=== PATIENT | male | born 1965 | race Caucasian/White ===

== ENCOUNTER → 2019-05-05 | Day surgery (SDC) | payer OTHER ==
[~2019-05-05] MED LIST: AMLODIPINE BESY10 MG PO; FENTANYL CITRATE/PF 100MCG/2 ML INJ ONE; HYOSCYAMINE SULFATE 0.5 MG/ML INJ ONE; KEFLEX500 MG PO; KENALOG TOP; LIDOCAINE HCL 2% LOCAL INJ 5 ML SDV VIAL INJ ONE; LOSARTAN-HCTZ1 EAC1 PO; MIDAZOLAM HCL 2 MG/2 ML VIAL ONE; NORCO 7.5-3251 EACH PO; PHENYLEPHRINE HCL 1% 10 MG/ML VIAL ONE; PROPOFOL IV EMULSION 10 MG/ML 50 ML VIAL ONE; SURFAK240 MG PO; ZETIA10 MG PO
--- NOTE | 2019-05-05 07:10 | NUR ---
SPIRITUAL CARE - Pre-Surgery Assessment: Pt in bed. Pt's at bedside. Pt reported supportive attention from family and friends. Intervention: I provided pastoral presence, hospitality,and sympathetic listening. I acquainted pt with availability of allergist/md while hospitalized. Outcome: Pt expressed appreciation for visit. No need for follow up indicated at this time. BERNARDO [facility] Spiritual Care Department O: [phone] Pager: [phone] ([phone] number calling from)
[2019-05-05 10:20] VITALS: BP 112/73
--- NOTE | 2019-05-05 17:01 | Operative Report ---
DATE OF PROCEDURE: 05/05/2019 SURGEON: Tushar Pritchard MD PROCEDURE: Colonoscopy and polypectomy. INDICATIONS FOR COLONOSCOPY: Colorectal cancer screening. MEDICATIONS: The patient was done under MAC, please see anesthesiologist's note. PROCEDURE IN DETAIL: With the patient in left lateral decubitus position, the flexible fiberoptic Olympus colonoscope was inserted into the rectum with ease and advanced all the way to the cecum. The scope was then withdrawn slowly. Mucosa overlying the cecum and ascending colon appeared to be within normal limits. One polyp was snared from the transverse colon. The descending colon appeared to be within normal limits. Two polyps were snared, one polyp was hot biopsied from the sigmoid colon. Two polyps were snared, one polyp was hot biopsied from the rectum. The scope was then retroflexed into the distal rectum and small internal hemorrhoids were noted none of which was actively bleeding. I repeat moderate-sized internal hemorrhoids were noted none of which was actively bleeding. The scope was then straightened out. It was subsequently withdrawn. The patient tolerated procedure well. External hemorrhoids were also noted. IMPRESSION: 1. Transverse colon polyp snared. 2. Sigmoid colon polyps x3, two snared, one hot biopsied. 3. Rectum, two polyps were snared and one polyp was hot biopsied. 4. Internal hemorrhoids, none actively bleeding. 5. External hemorrhoids. PLAN: Follow up histology. Initiate high-fiber, low-fat diet. Initiate high-fiber supplement. The patient might benefit from a followup colonoscopy in 3 years. Tushar Pritchard MD [facility] [place]/ELENA /[id number] cc: MD Daryn Crockett MD
== END | disposition home or self-care (01) ==
LOC: OR 05:49
PROVIDERS: ATTEND Internal Medicine Gastroenterology
DX: Z12.11 Encounter for screening for malignant neoplasm of colon (principal); D12.7 Benign neoplasm of rectosigmoid junction; D12.3 Benign neoplasm of transverse colon; K64.4 Residual hemorrhoidal skin tags; Z68.30 Body mass index [BMI] 30.0-30.9, adult; R03.0 Elevated blood-pressure reading, without diagnosis of hypertension; K62.5 Hemorrhage of anus and rectum; K64.8 Other hemorrhoids
CPT/HCPCS: 36415; 45378; 45384; 45385; 82948; 93005; J1980; J2001; J2250; J2370

== ENCOUNTER 2019-05-14 06:48 | Observation (INO) | payer OTHER ==
[2019-05-12 09:10] LABS: BASOPHILS % 0.6 % (0.0-1.0); EOSINOPHILS # (AUTO) 0.2 (0.0-0.4); EOSINOPHILS % 3.3 % (0.0-6.0); HEMATOCRIT 37.9 % (38.2-49.6); HEMOGLOBIN 13.9 g/dL (14.0-18.0); LYMPHOCYTES # (AUTO) 1.9 (1.0-3.2); LYMPHOCYTES % 28.5 % (18.0-39.1); MEAN CORPUSCULAR HEMOGLOBIN 30.8 pg (28-32); MEAN CORPUSCULAR HGB CONC 36.7 g/dL (31-35); MEAN CORPUSCULAR VOLUME 83.8 fL (81-99); MONOCYTES # (AUTO) 0.6 (0.2-0.8); MONOCYTES % 9.2 % (4.4-11.3); NEUTROPHILS # (AUTO) 3.9 (2.1-6.9); NEUTROPHILS % 58.1 % (38.7-80.0); PLATELET COUNT 231 x10e3/uL (140-360); RED BLOOD COUNT 4.52 x10e6/uL (4.3-5.7); RED CELL DISTRIBUTION WIDTH 13.4 % (11.7-14.4)
[2019-05-12 09:41] LABS: CALCIUM 10.1 mg/dL (8.4-10.2); CREATININE, SERUM 1.52 mg/dL (0.72-1.25)
[~2019-05-14] VITALS: Ht 167.6 cm; Wt 78.0 kg
[~2019-05-14 06:48] MED LIST changes: -FENTANYL CITRATE/PF 100MCG/2 ML INJ ONE; -HYOSCYAMINE SULFATE 0.5 MG/ML INJ ONE; -KEFLEX500 MG PO; -KENALOG TOP; -LIDOCAINE HCL 2% LOCAL INJ 5 ML SDV VIAL INJ ONE; -MIDAZOLAM HCL 2 MG/2 ML VIAL ONE; -NORCO 7.5-3251 EACH PO; -PHENYLEPHRINE HCL 1% 10 MG/ML VIAL ONE; -PROPOFOL IV EMULSION 10 MG/ML 50 ML VIAL ONE; -SURFAK240 MG PO
[2019-05-14 08:09] LABS: ANION GAP 19.2 mmol/L (8-16); CALCIUM 10.1 mg/dL (8.4-10.2); CREATININE, SERUM 1.69 mg/dL (0.72-1.25); POTASSIUM 3.2 mmol/L (3.5-5.1)
[2019-05-14] MEDS ORDERED: LIDOCAINE HCL 1% LOCAL INJ 20 ML VIAL ONE (08:52)
[2019-05-14] MEDS ORDERED: LIDOCAINE HCL 2% 30 ML TUBE ONE ×2 (08:52→08:53)
[2019-05-14] MEDS ORDERED: BUPIVACAINE 0.25%/EPI 30ML SDV INJ ONE (08:52)
[2019-05-14] MEDS: SODIUM CHLORIDE 0.9% 1000ML 1,000 ML IV SCH ×2 (11:23→13:41)
[2019-05-14] MEDS ORDERED: HYDROMORPHONE 1MG/1ML INJ IV PRN (11:30)
[2019-05-14] MEDS ORDERED: ACETAMINOPHEN 1000 MG/100 ML IV PRN (11:30)
[2019-05-14] MEDS ORDERED: ONDANSETRON HCL INJ 2MG/ML 2ML 2 MG/ML VIAL IV PRN (11:30)
[2019-05-14] MEDS ORDERED: MEPERIDINE HCL INJ 25 MG/ML VIAL ONE (11:38)
[2019-05-14] MEDS ORDERED: HYDROMORPHONE 2MG/ML 2 MG/ML ML ONE (11:51)
--- NOTE | 2019-05-14 11:57 | Operative Report ---
DATE OF PROCEDURE: 05/14/2019 SURGEON: Javon Ramon MD PREOPERATIVE DIAGNOSIS: Thrombosed prolapsing internal and external hemorrhoids. POSTOPERATIVE DIAGNOSIS: Thrombosed prolapsing internal and external hemorrhoids. OPERATION PERFORMED: Internal and external hemorrhoidectomy. TOPPIECE CUTTER: BERNIE Saucedo. ANESTHESIA: General. COMPLICATIONS: None. ESTIMATED BLOOD LOSS: Minimal. PROCEDURE IN DETAIL: With the patient lying in bed in the lithotomy position, under good general anesthesia, the perineum was prepped with Betadine solution and draped in the usual manner. A complete anorectal block was then performed with 0.25% Marcaine and 1% lidocaine with epinephrine mixed in equal parts. Examination at this point revealed there was a large prolapsing thrombosed hemorrhoidal group extending from about the 2 o'clock to about the 6 o'clock position. There was a small hemorrhoidal group at 8 o'clock and another small hemorrhoidal group at the 12 o'clock position. The hemorrhoid group at the 4 o'clock position was then ligated with a 0 chromic suture. The external component was then slowly and carefully resected in a submucous fashion and was totally completely removed. The base of the hemorrhoid was then further oversewn with the 0 chromic suture and the skin and mucosa were then reapproximated with interrupted sutures of 3-0 chromic. After this was done, the hemorrhoids at the 12 o'clock and 8 o'clock position were ligated with 0 chromic suture. Hemostasis was ascertained. A Gelfoam pack impregnated with Xylocaine was placed. A dressing was applied. The sponge, lap, and needle count was correct. The patient tolerated the procedure well and returned to the recovery room in stable condition. Javon Ramon MD [facility]/MODL /[id number]
--- NOTE | 2019-05-14 12:23 | NUR ---
Patient arrived from PACU, fully awake, alert and able to ambulate to bathroom to void with standby assistance. Rectal dressing intact. Vital signs stable and pt orient to new room. Bed in lowest position, locked and call holloway within.
[2019-05-14 12:30] VITALS: BP 115/69
[2019-05-14 12:35] VITALS: BP 115/69
[2019-05-14] MEDS ORDERED: HYDROMORPHONE 2MG/ML 2 MG/ML ML IV PRN (13:00)
[2019-05-14] MEDS: CEFOXITIN 1GM/ D5W 50ML 50 ML IV SCH ×2 (13:33→17:50)
[2019-05-14] MEDS: HYDROCODONE/APAP 7.5MG-325MG 1 EA TAB PO PRN ×3 (13:41→23:13)
[2019-05-14 16:44] VITALS: BP 100/58
--- NOTE | 2019-05-14 17:00 | NUR ---
Patient ambulating to bathroom and back without any complaints voiced.
--- NOTE | 2019-05-14 18:08 | NUR ---
Dr. Ramon making rounds. Call holloway within reach.
[2019-05-14] MEDS ORDERED: DEXAMETHASONE SOD PHOS INJ 4 MG/ML VIAL ONE (18:39)
[2019-05-14] MEDS ORDERED: PROPOFOL IV EMULSION 10 MG/ML 20 ML VIAL ONE (18:39)
[2019-05-14] MEDS ORDERED: SEVOFLURANE INHAL SOLN 250 ML PEN BTL ONE (18:39)
[2019-05-14] MEDS ORDERED: LIDOCAINE HCL 2% LOCAL INJ 5 ML SDV VIAL INJ ONE (18:39)
[2019-05-14] MEDS ORDERED: ONDANSETRON HCL INJ 2MG/ML 2ML 2 MG/ML VIAL ONE (18:39)
[2019-05-14] MEDS ORDERED: ACETAMINOPHEN 1000 MG/100 ML IV ONE (18:39)
[2019-05-14] MEDS ORDERED: FENTANYL CITRATE/PF 100MCG/2 ML INJ ONE (18:43)
[2019-05-14] MEDS ORDERED: MIDAZOLAM HCL 2 MG/2 ML VIAL ONE (18:43)
[2019-05-14 19:27] VITALS: BP 116/67
[2019-05-14 19:29] VITALS: BP 111/67
[2019-05-15] VITALS: BP 100/56
[2019-05-15 04:00] VITALS: BP 112/61
[2019-05-15] MEDS: HYDROCODONE/APAP 7.5MG-325MG 1 EA TAB PO PRN ×3 (04:05→08:02)
[2019-05-15] MEDS: SODIUM CHLORIDE 0.9% 1000ML 1,000 ML IV SCH (04:45)
[2019-05-15 05:31] LABS: BASOPHILS % 0.1 % (0.0-1.0); HEMATOCRIT 36.8 % (38.2-49.6); LYMPHOCYTES # (AUTO) 1.2 (1.0-3.2); LYMPHOCYTES % 12.3 % (18.0-39.1); MEAN CORPUSCULAR HEMOGLOBIN 30.2 pg (28-32); MEAN CORPUSCULAR HGB CONC 35.3 g/dL (31-35); MEAN CORPUSCULAR VOLUME 85.4 fL (81-99); MONOCYTES # (AUTO) 0.5 (0.2-0.8); MONOCYTES % 5.1 % (4.4-11.3); NEUTROPHILS # (AUTO) 8.1 (2.1-6.9); NEUTROPHILS % 82.1 % (38.7-80.0); PLATELET COUNT 234 x10e3/uL (140-360); RED BLOOD COUNT 4.31 x10e6/uL (4.3-5.7); RED CELL DISTRIBUTION WIDTH 13.4 % (11.7-14.4)
[2019-05-15 05:40] LABS: ANION GAP 17.6 mmol/L (8-16); CALCIUM 9.3 mg/dL (8.4-10.2); CREATININE, SERUM 1.35 mg/dL (0.72-1.25); POTASSIUM 3.6 mmol/L (3.5-5.1)
--- NOTE | 2019-05-15 07:05 | NUR ---
Patient up ambulating to bathroom without any complaints voiced at this time. Dressing/ rectal packing in place. Patient instructed to call for assistance as needed and verbalized understanding. Call holloway within reach.
[2019-05-15] MEDS ORDERED: NON-FORMULARY MEDICATION (Losartan/Hydrochlorothiazide (Losartan-Hctz 100-25 Mg Tab) 1 TAB PO SCH (09:00)
[2019-05-15] MEDS ORDERED: HYDROCHLOROTHIAZIDE 25 MG TAB PO SCH (09:00)
[2019-05-15] MEDS ORDERED: LOSARTAN POTASSIUM 100 MG TAB PO SCH (09:00)
[2019-05-15] MEDS ORDERED: EZETIMIBE 10 MG TAB PO SCH (09:00)
[2019-05-15] MEDS ORDERED: AMLODIPINE BESYLATE 10 MG TAB PO SCH (09:00)
[2019-05-15 09:10] VITALS: BP 100/65
[2019-05-15 09:16] VITALS: BP 100/65
[2019-05-15] MEDS ORDERED: ONDANSETRON HCL 4 MG ORAL DISINTEGRATING TAB PO PRN (10:30)
[2019-05-15 11:47] VITALS: BP 105/66
[2019-05-15] MEDS ORDERED: SURFAK240 MG PO (14:42)
[2019-05-15] MEDS ORDERED: KEFLEX500 MG PO (14:43)
[2019-05-15] MEDS ORDERED: KENALOG TOP (14:44)
[2019-05-15] MEDS ORDERED: NORCO 7.5-3251 EACH PO (14:45)
--- NOTE | 2019-05-15 15:00 | NUR ---
Dr. Ramon making rounds. Patient will be discharged home today. Written instructions given patient verbalized understanding. Awaiting ride
--- NOTE | 2019-05-15 15:18 | NUR ---
Patient wheeled to private vehicle with all belongings.
== END 2019-05-15 15:18 | disposition home or self-care (01) ==
LOC: OR 06:48 → PACU V 11:25 → IMCU 12:47
PROVIDERS: ADMIT Surgery; ATTEND Surgery
DX: K64.8 Other hemorrhoids (principal); K64.5 Perianal venous thrombosis; Z01.810 Encounter for preprocedural cardiovascular examination; Z01.812 Encounter for preprocedural laboratory examination; E11.9 Type 2 diabetes mellitus without complications; I10 Essential (primary) hypertension
CPT/HCPCS: 36415 ×3; 46260; 80048 ×3; 82948 ×2; 85025 ×2; 88304; G0378 ×2; J0131; J1100; J1170; J2001 ×2; J2175; J2250; J2405; J2704; J7030 ×2

== ENCOUNTER → 2019-10-31 | Day surgery (SDC) | payer OTHER ==
[2019-10-21 09:37] LABS: BASOPHILS # (AUTO) 0.1 (0.0-0.1); EOSINOPHILS # (AUTO) 0.3 (0.0-0.4); EOSINOPHILS % 4.5 % (0.0-6.0); HEMATOCRIT 45.5 % (38.2-49.6); HEMOGLOBIN 15.4 g/dL (14.0-18.0); LYMPHOCYTES # (AUTO) 1.2 (1.0-3.2); LYMPHOCYTES % 16.3 % (18.0-39.1); MEAN CORPUSCULAR HEMOGLOBIN 31.3 pg (28-32); MEAN CORPUSCULAR HGB CONC 33.8 g/dL (31-35); MEAN CORPUSCULAR VOLUME 92.5 fL (81-99); MONOCYTES # (AUTO) 0.5 (0.2-0.8); MONOCYTES % 6.6 % (4.4-11.3); NEUTROPHILS # (AUTO) 5.2 (2.1-6.9); NEUTROPHILS % 71.2 % (38.7-80.0); PLATELET COUNT 225 x10e3/uL (140-360); RED BLOOD COUNT 4.92 x10e6/uL (4.3-5.7); RED CELL DISTRIBUTION WIDTH 12.6 % (11.7-14.4)
[2019-10-21 10:09] LABS: BLOOD UREA NITROGEN 22 mg/dL (7-26); BUN/CREATININE RATIO 18 (6-25); CALCIUM 10.5 mg/dL (8.4-10.2); CARBON DIOXIDE 29 mmol/L (22-29); CHLORIDE 102 mmol/L (98-107); EST GLOMERULAR FILTRATION RATE > 60 ML/MIN (60-); GLUCOSE 107 mg/dL (74-118); SODIUM 140 mmol/L (136-145)
[~2019-10-31] MED LIST changes: +BUPIVACAINE 0.25%/EPI 30ML SDV INJ ONE; +CIPRO500 MG PO; +DEXAMETHASONE SOD PHOS INJ 4 MG/ML VIAL ONE; +FENTANYL CITRATE/PF 100MCG/2 ML INJ ONE; +FLOMAX0.4 MG PO; +HYDROCODONE/APAP 7.5MG-325MG 1 EA TAB ONE; +KEFLEX500 MG PO; +KENALOG TOP; +KETOROLAC TROMETHAMINE 30 MG/ML VIAL ONE; +LIDOCAINE HCL 1% 30ML-PF VIAL ONE; +LIDOCAINE HCL 2% LOCAL INJ 5 ML SDV VIAL INJ ONE; +MIDAZOLAM HCL 2 MG/2 ML VIAL ONE; +NORCO 7.5-3251 EACH PO; +ONDANSETRON HCL INJ 2MG/ML 2ML 2 MG/ML VIAL ONE; +PROPOFOL IV EMULSION 10 MG/ML 20 ML VIAL ONE; +SEVOFLURANE INHAL SOLN 250 ML PEN BTL ONE; +SURFAK240 MG PO
[2019-10-31 12:45] VITALS: BP 104/75
--- NOTE | 2019-10-31 17:53 | Operative Report ---
DATE OF PROCEDURE: 10/31/2019 SURGEON: Javon Ramon MD PREOPERATIVE DIAGNOSIS: Right inguinal hernia. POSTOPERATIVE DIAGNOSIS: Right direct inguinal hernia. OPERATION PERFORMED: Repair of right direct inguinal hernia with large Prolene hernia system. ANESTHESIA: General. COMPLICATIONS: None. ESTIMATED BLOOD LOSS: Minimal. DESCRIPTION OF PROCEDURE: With the patient lying in bed in the supine position under good general anesthesia, the abdomen was prepped with Betadine solution and draped in the usual manner. A right inguinal incision was made and was carried down through the subcutaneous tissue down to the external oblique aponeurosis. External oblique was then opened along the length of its fibers and the external inguinal ring was opened. The cord was then mobilized and retracted. Exploration of the cord revealed the presence of a small lipoma of the cord which was from the cord structures, ligated, and divided. The direct space had a large protruding direct hernia which was from all the structures and imbricated with a pursestring suture of 2-0 silk. After this was done, the preperitoneal space was then entered right through the internal ring and a pocket was created without any difficulty. A large Prolene hernia system was placed in the preperitoneal space and the underlay patch was deployed without any problems. The overlay patch was then placed over the floor and split inferolaterally to allow for passage of the cord. The mesh was then sutured to the conjoined tendon and the inguinal ligament using interrupted sutures of 2-0 Vicryl. All layers then infiltrated on the way out with solution of 0.25% Marcaine and 1% lidocaine mixed in equal parts. The external oblique aponeurosis was then closed with a running suture of 2-0 Vicryl, subcutaneous tissue was approximated with 3-0 plain, and the skin was closed with clips. A dressing was applied. The sponge, lap, and needle count was correct. The patient tolerated the procedure well and returned to the recovery room in stable condition. MD ERIN BolandR/MODL /[id number]
== END | disposition home or self-care (01) ==
LOC: OR 06:25
PROVIDERS: ATTEND Surgery
DX: K40.90 Unilateral inguinal hernia, without obstruction or gangrene, not specified as recurrent (principal); D17.6 Benign lipomatous neoplasm of spermatic cord; I10 Essential (primary) hypertension; E78.5 Hyperlipidemia, unspecified; E11.9 Type 2 diabetes mellitus without complications; Z88.8 Allergy status to other drugs, medicaments and biological substances; Z01.810 Encounter for preprocedural cardiovascular examination; Z01.812 Encounter for preprocedural laboratory examination
CPT/HCPCS: 36415 ×2; 49505; 80048; 82948; 85025; 93005; C1781; J1100; J1885; J2001 ×2; J2250; J2405; J2704; J3010

== ENCOUNTER 2020-06-09 06:28 | Inpatient (IN) | payer OTHER ==
[2020-06-04 16:39] LABS: BASOPHILS # (AUTO) 0.1 (0.0-0.1); BASOPHILS % 0.8 % (0.0-1.0); EOSINOPHILS # (AUTO) 0.2 (0.0-0.4); EOSINOPHILS % 3.5 % (0.0-6.0); HEMATOCRIT 42.8 % (38.2-49.6); HEMOGLOBIN 14.5 g/dL (14.0-18.0); LYMPHOCYTES # (AUTO) 1.5 (1.0-3.2); LYMPHOCYTES % 24.8 % (18.0-39.1); MEAN CORPUSCULAR HEMOGLOBIN 30.8 pg (28-32); MEAN CORPUSCULAR HGB CONC 33.9 g/dL (31-35); MEAN CORPUSCULAR VOLUME 90.9 fL (81-99); MONOCYTES # (AUTO) 0.4 (0.2-0.8); MONOCYTES % 6.9 % (4.4-11.3); NEUTROPHILS # (AUTO) 3.9 (2.1-6.9); NEUTROPHILS % 63.5 % (38.7-80.0); PLATELET COUNT 209 x10e3/uL (140-360); RED BLOOD COUNT 4.71 x10e6/uL (4.3-5.7); RED CELL DISTRIBUTION WIDTH 12.8 % (11.7-14.4)
[2020-06-04 16:56] LABS: ANION GAP 14.7 mmol/L (8-16); BLOOD UREA NITROGEN 21 mg/dL (7-26); BUN/CREATININE RATIO 19 (6-25); CARBON DIOXIDE 28 mmol/L (22-29); CHLORIDE 104 mmol/L (98-107); CREATININE, SERUM 1.13 mg/dL (0.72-1.25); EST GLOMERULAR FILTRATION RATE > 60 ML/MIN (60-); GLUCOSE 118 mg/dL (74-118); POTASSIUM 3.7 mmol/L (3.5-5.1); SODIUM 143 mmol/L (136-145)
[~2020-06-09] VITALS: Ht 167.6 cm; Wt 74.4 kg
[~2020-06-09 06:28] MED LIST changes: -BUPIVACAINE 0.25%/EPI 30ML SDV INJ ONE; -DEXAMETHASONE SOD PHOS INJ 4 MG/ML VIAL ONE; -FENTANYL CITRATE/PF 100MCG/2 ML INJ ONE; +FINASTERIDE5 MG PO; -HYDROCODONE/APAP 7.5MG-325MG 1 EA TAB ONE; -KETOROLAC TROMETHAMINE 30 MG/ML VIAL ONE; -LIDOCAINE HCL 1% 30ML-PF VIAL ONE; -LIDOCAINE HCL 2% LOCAL INJ 5 ML SDV VIAL INJ ONE; -MIDAZOLAM HCL 2 MG/2 ML VIAL ONE; -ONDANSETRON HCL INJ 2MG/ML 2ML 2 MG/ML VIAL ONE; -PROPOFOL IV EMULSION 10 MG/ML 20 ML VIAL ONE; -SEVOFLURANE INHAL SOLN 250 ML PEN BTL ONE
[2020-06-09] MEDS ORDERED: GENTAMICIN 80MG/NS 100 ML 200 ML IV ONE (06:46)
[2020-06-09] MEDS ORDERED: SODIUM CHLORIDE 0.9% 1000ML 1,000 ML ONE (06:46)
[2020-06-09] MEDS ORDERED: CEFTRIAXONE SOD 1 GM/NS 50 ML 50 ML IV ONE (06:46)
[2020-06-09] MEDS ORDERED: B&O 60MG R/S 60 MG SUPP PR ONE (08:52)
[2020-06-09] MEDS ORDERED: IOPAMIDOL 300MG/ML 50ML INFUS..BTL IV ONE (08:52)
[2020-06-09] MEDS ORDERED: B&O 60MG R/S 60 MG SUPP PR PRN (11:00)
[2020-06-09] MEDS ORDERED: PHENAZOPYRIDINE HCL 100 MG TAB PO PRN (11:00)
[2020-06-09] MEDS ORDERED: ONDANSETRON HCL INJ 2MG/ML 2ML 2 MG/ML VIAL IV PRN (11:00)
[2020-06-09] MEDS ORDERED: DIPHENHYDRAMINE HCL 25 MG CAP PO PRN (11:00)
[2020-06-09] MEDS ORDERED: ACETAMINOPHEN/CODEINE 300MG - 30MG TAB PO PRN (11:00)
[2020-06-09] MEDS ORDERED: FENTANYL CITRATE/PF 100MCG/2 ML INJ ONE (11:32)
[2020-06-09 11:53] LABS: BASOPHILS # (AUTO) 0.1 (0.0-0.1); BASOPHILS % 0.5 % (0.0-1.0); EOSINOPHILS # (AUTO) 0.1 (0.0-0.4); EOSINOPHILS % 0.9 % (0.0-6.0); HEMATOCRIT 42.9 % (38.2-49.6); HEMOGLOBIN 14.6 g/dL (14.0-18.0); LYMPHOCYTES # (AUTO) 1.3 (1.0-3.2); MEAN CORPUSCULAR HEMOGLOBIN 30.9 pg (28-32); MEAN CORPUSCULAR VOLUME 90.9 fL (81-99); MONOCYTES # (AUTO) 0.3 (0.2-0.8); MONOCYTES % 2.5 % (4.4-11.3); NEUTROPHILS # (AUTO) 8.8 (2.1-6.9); NEUTROPHILS % 83.7 % (38.7-80.0); PLATELET COUNT 192 x10e3/uL (140-360); RED BLOOD COUNT 4.72 x10e6/uL (4.3-5.7); RED CELL DISTRIBUTION WIDTH 12.7 % (11.7-14.4)
[2020-06-09 12:32] LABS: ANION GAP 11.3 mmol/L (8-16); BLOOD UREA NITROGEN 17 mg/dL (7-26); BUN/CREATININE RATIO 16 (6-25); CARBON DIOXIDE 26 mmol/L (22-29); CHLORIDE 106 mmol/L (98-107); CREATININE, SERUM 1.09 mg/dL (0.72-1.25); EST GLOMERULAR FILTRATION RATE > 60 ML/MIN (60-); GLUCOSE 124 mg/dL (74-118); POTASSIUM 4.3 mmol/L (3.5-5.1); SODIUM 139 mmol/L (136-145)
--- NOTE | 2020-06-09 14:58 | NUR ---
RCD PT FROM PACU BY BED PT IS ALERT AND ORIENTED VITALS CHECKED PT ON CARRANZA 24 F WITH CONTINUOUS BLADDER IRRIGATION ,NO SIGNS OF BLEEDING VARGAS COLOR URINE ,ADMISSION ASSESSMENT AND HISTORY DONE ,INSTRUCTED THE PATIENT REGARDING HOSPITAL POLICY ,SPECIALLY VISITING POLICY BED LOW AND LOCKED CALL LIGHT IN REACH
[2020-06-09] MEDS: SOD CHL 0.45%/POT CHL 20MEQ 1,000 ML IV SCH ×2 (16:00→19:00)
[2020-06-09 16:17] VITALS: BP 114/78
[2020-06-09] MEDS: DOCUSATE SODIUM 100 MG CAP PO SCH (17:00)
[2020-06-09 17:52] VITALS: BP 114/78
[2020-06-09 18:00] VITALS: BP 117/62
--- NOTE | 2020-06-09 18:43 | NUR ---
PT RESTING ON BED BED SIDE REPORT GIVEN TO ONCOMING NURSE
[2020-06-09] MEDS ORDERED: ONDANSETRON HCL INJ 2MG/ML 2ML 2 MG/ML VIAL ONE (18:50)
[2020-06-09] MEDS ORDERED: PROPOFOL IV EMULSION 10 MG/ML 20 ML VIAL ONE (18:50)
[2020-06-09] MEDS ORDERED: SEVOFLURANE INHAL SOLN 250 ML PEN BTL ONE (18:50)
[2020-06-09] MEDS ORDERED: LIDOCAINE HCL 2% LOCAL INJ 5 ML SDV VIAL INJ ONE (18:50)
[2020-06-09] MEDS ORDERED: DEXAMETHASONE SOD PHOS INJ 4 MG/ML VIAL ONE (18:50)
[2020-06-09] MEDS ORDERED: ETOMIDATE 2 MG/ML 10 ML INJ IV ONE (18:50)
[2020-06-09 20:00] VITALS: BP 122/83
[2020-06-09] MEDS: ACETAMINOPHEN 1000 MG/100 ML IV PRN (21:16)
[2020-06-10] VITALS (8 sets, daily range): BP systolic 108–123; BP diastolic 66–87
[2020-06-10] MEDS: SOD CHL 0.45%/POT CHL 20MEQ 1,000 ML IV SCH ×3 (03:42→19:00)
[2020-06-10] MEDS: ACETAMINOPHEN 1000 MG/100 ML IV PRN (04:26)
[2020-06-10 04:42] LABS: BASOPHILS % 0.1 % (0.0-1.0); EOSINOPHILS % 0.1 % (0.0-6.0); HEMATOCRIT 42.4 % (38.2-49.6); HEMOGLOBIN 14.2 g/dL (14.0-18.0); LYMPHOCYTES # (AUTO) 1.4 (1.0-3.2); LYMPHOCYTES % 9.8 % (18.0-39.1); MEAN CORPUSCULAR HEMOGLOBIN 30.7 pg (28-32); MEAN CORPUSCULAR HGB CONC 33.5 g/dL (31-35); MEAN CORPUSCULAR VOLUME 91.6 fL (81-99); MONOCYTES # (AUTO) 1.1 (0.2-0.8); MONOCYTES % 7.6 % (4.4-11.3); NEUTROPHILS # (AUTO) 11.4 (2.1-6.9); PLATELET COUNT 221 x10e3/uL (140-360); RED BLOOD COUNT 4.63 x10e6/uL (4.3-5.7); RED CELL DISTRIBUTION WIDTH 12.5 % (11.7-14.4)
[2020-06-10 05:05] LABS: ANION GAP 11.3 mmol/L (8-16); BLOOD UREA NITROGEN 17 mg/dL (7-26); BUN/CREATININE RATIO 18 (6-25); CALCIUM 8.5 mg/dL (8.4-10.2); CARBON DIOXIDE 24 mmol/L (22-29); CHLORIDE 107 mmol/L (98-107); CREATININE, SERUM 0.95 mg/dL (0.72-1.25); EST GLOMERULAR FILTRATION RATE > 60 ML/MIN (60-); GLUCOSE 130 mg/dL (74-118); POTASSIUM 4.3 mmol/L (3.5-5.1); SODIUM 138 mmol/L (136-145)
--- NOTE | 2020-06-10 05:41 | Consultation ---
DATE OF CONSULTATION: REASON FOR CONSULTATION: Postop medical management. HISTORY OF PRESENT ILLNESS: The patient is a 54-year-old gentleman, status post TURP for severe BPH, who is doing very well postoperatively with minimal hematuria in his Murray bag. He states his pain is well controlled. PAST MEDICAL HISTORY: Significant for BPH, hypertension, and hyperlipidemia. MEDICATIONS: See MAR. ALLERGIES: TO PHENERGAN. SOCIAL: . Nonsmoker, nondrinker. FAMILY HISTORY: Noncontributory. PHYSICAL EXAMINATION: VITAL SIGNS: Temperature is 98.0 pulse 80, blood pressure 108/66, and saturations 93% on room air. GENERAL: No apparent distress, lying in bed. NECK: Supple. CARDIOVASCULAR: Regular rate and rhythm. LUNGS: Clear to auscultation bilaterally. ABDOMEN: Good bowel sounds. Soft and nontender. EXTREMITIES: No clubbing or cyanosis. NEUROLOGIC: Nonfocal. GENITOURINARY: Has a Murray intact with no clots noted and good color and of mostly yellowish color. ASSESSMENT AND PLAN: 1. Status post transurethral resection of the prostate. Continue with postoperative care per Dr. Garcia. 2. Urinary tract infection. Continue with the antibiotics. 3. Elevated sugars. Continue with current care monitoring. 4. Hypertension. We will restart his home medicines. 5. Hyperlipidemia. We will continue with his home medication. Please see hospital chart for full details. MD LONNY Adams/ELENA /[id number]
--- NOTE | 2020-06-10 07:10 | NUR ---
RCD PT AT BED PT IS ALERT AND ORIENTED PT RESTING ON BED IV PATENT BY SALINE FLUSH PT ON CBI ALMOST CLEAR BED LOW AND LOCKED CALL LIGHT IN REACH
[2020-06-10] MEDS: DOCUSATE SODIUM 100 MG CAP PO SCH ×2 (08:46→17:00)
[2020-06-10] MEDS: CEFTRIAXONE SOD 1 GM/NS 50 ML 50 ML IV SCH (08:46)
[2020-06-10] MEDS: TAMSULOSIN HCL 0.4 MG CAP PO SCH ×2 (08:47→17:00)
[2020-06-10] MEDS: EZETIMIBE 10 MG TAB PO SCH (08:47)
[2020-06-10] MEDS: AMLODIPINE BESYLATE 5 MG TAB PO SCH (08:47)
[2020-06-10] MEDS: FINASTERIDE 5 MG TAB PO SCH (08:47)
--- NOTE | 2020-06-10 18:56 | NUR ---
PT RESTING ON BED BED SIDE REPORT GIVEN TO ONCOMING NURSE
--- NOTE | 2020-06-10 19:20 | NUR ---
BEDSIDE SHIFT REPORT RECEIVED FROM DAY RN. PT IS ALERT AND ORIENTED X3. RESPIRATIONS ARE EVEN AND UNLABORED. CBI CONTINUES. CARRANZA DRAINING CLEAR YELLOW WITH OCCASSIONAL BLOOD TINGED URINE.URINE CLEAR WITH CBI.PT DENIES PAIN. PT WATCHING TV IN BED. CALL LIGHT WITHIN REACH.BED IN LOW POSITION.
[2020-06-11] VITALS (8 sets, daily range): BP systolic 118–143; BP diastolic 82–94
[2020-06-11] MEDS: SOD CHL 0.45%/POT CHL 20MEQ 1,000 ML IV SCH ×4 (00:09→20:15)
[2020-06-11 05:00] LABS: BASOPHILS # (AUTO) 0.1 (0.0-0.1); BASOPHILS % 0.6 % (0.0-1.0); EOSINOPHILS # (AUTO) 0.2 (0.0-0.4); EOSINOPHILS % 1.6 % (0.0-6.0); HEMATOCRIT 43.3 % (38.2-49.6); HEMOGLOBIN 14.3 g/dL (14.0-18.0); LYMPHOCYTES # (AUTO) 2.1 (1.0-3.2); MEAN CORPUSCULAR HEMOGLOBIN 30.8 pg (28-32); MEAN CORPUSCULAR VOLUME 93.1 fL (81-99); MONOCYTES # (AUTO) 0.8 (0.2-0.8); NEUTROPHILS # (AUTO) 6.7 (2.1-6.9); NEUTROPHILS % 68.3 % (38.7-80.0); PLATELET COUNT 189 x10e3/uL (140-360); RED BLOOD COUNT 4.65 x10e6/uL (4.3-5.7)
[2020-06-11 05:20] LABS: ALANINE AMINOTRANSFERASE 25 IU/L (0-55); ALBUMIN 3.2 g/dL (3.5-5.0); ALBUMIN/GLOBULIN RATIO 1.1 (0.8-2.0); ALKALINE PHOSPHATASE 54 IU/L (40-150); ANION GAP 9.1 mmol/L (8-16); BLOOD UREA NITROGEN 15 mg/dL (7-26); BUN/CREATININE RATIO 15 (6-25); CALCIUM 8.6 mg/dL (8.4-10.2); CARBON DIOXIDE 26 mmol/L (22-29); CHLORIDE 108 mmol/L (98-107); CREATININE, SERUM 0.97 mg/dL (0.72-1.25); EST GLOMERULAR FILTRATION RATE > 60 ML/MIN (60-); GLUCOSE 110 mg/dL (74-118); MAGNESIUM 1.9 MG/DL (1.3-2.1); POTASSIUM 4.1 mmol/L (3.5-5.1); SODIUM 139 mmol/L (136-145)
--- NOTE | 2020-06-11 07:25 | NUR ---
PT IN BED SLEEPING NO DISTRESS NOTED ,NO S/S DISCOMFORT.BLADDER IRRIGATION IN PROCESS CLEAR YELLOW URINE,
[2020-06-11] MEDS: AMLODIPINE BESYLATE 5 MG TAB PO SCH (09:00)
[2020-06-11] MEDS: FINASTERIDE 5 MG TAB PO SCH (09:00)
[2020-06-11] MEDS: TAMSULOSIN HCL 0.4 MG CAP PO SCH ×2 (09:00→17:19)
[2020-06-11] MEDS: DOCUSATE SODIUM 100 MG CAP PO SCH ×2 (09:00→17:19)
[2020-06-11] MEDS: CEFTRIAXONE SOD 1 GM/NS 50 ML 50 ML IV SCH (09:05)
[2020-06-11] MEDS: EZETIMIBE 10 MG TAB PO SCH (10:45)
--- NOTE | 2020-06-11 14:45 | NUR ---
DR VELASCO HERE ORDERS TO DC DILLON.
--- NOTE | 2020-06-11 15:00 | NUR ---
CARRANZA CATH DCD ORDERED.
--- NOTE | 2020-06-11 15:30 | NUR ---
VOIDED RED TINGED URINE,SERIAL URINE STARTED
--- NOTE | 2020-06-11 17:13 | NUR ---
PT UP IN BED VOIDING RED TINGED URINE.DENIES PAIN.
[2020-06-12] VITALS: BP 127/87
[2020-06-12 04:00] VITALS: BP 122/90
[2020-06-12 05:45] LABS: BASOPHILS # (AUTO) 0.1 (0.0-0.1); BASOPHILS % 0.7 % (0.0-1.0); EOSINOPHILS # (AUTO) 0.2 (0.0-0.4); EOSINOPHILS % 2.8 % (0.0-6.0); HEMATOCRIT 41.4 % (38.2-49.6); HEMOGLOBIN 14.1 g/dL (14.0-18.0); LYMPHOCYTES # (AUTO) 1.8 (1.0-3.2); LYMPHOCYTES % 26.1 % (18.0-39.1); MEAN CORPUSCULAR HEMOGLOBIN 31.8 pg (28-32); MEAN CORPUSCULAR HGB CONC 34.1 g/dL (31-35); MEAN CORPUSCULAR VOLUME 93.5 fL (81-99); MONOCYTES # (AUTO) 0.6 (0.2-0.8); MONOCYTES % 8.6 % (4.4-11.3); NEUTROPHILS # (AUTO) 4.3 (2.1-6.9); NEUTROPHILS % 61.1 % (38.7-80.0); PLATELET COUNT 180 x10e3/uL (140-360); RED BLOOD COUNT 4.43 x10e6/uL (4.3-5.7); RED CELL DISTRIBUTION WIDTH 13.1 % (11.7-14.4)
[2020-06-12 06:02] LABS: ANION GAP 12.9 mmol/L (8-16); BLOOD UREA NITROGEN 13 mg/dL (7-26); BUN/CREATININE RATIO 14 (6-25); CALCIUM 9.1 mg/dL (8.4-10.2); CARBON DIOXIDE 24 mmol/L (22-29); CHLORIDE 107 mmol/L (98-107); EST GLOMERULAR FILTRATION RATE > 60 ML/MIN (60-); GLUCOSE 109 mg/dL (74-118); POTASSIUM 3.9 mmol/L (3.5-5.1); SODIUM 140 mmol/L (136-145)
[2020-06-12] MEDS: SOD CHL 0.45%/POT CHL 20MEQ 1,000 ML IV SCH (06:21)
--- NOTE | 2020-06-12 07:58 | NUR ---
Patient received discharge order from Dr. Chappell. Patient had already been cleared by Dr. Garcia and had prescriptions on the chart to go home with. Patient was given discharge paperwork, new prescriptions were given, patient stated he already had a follow up appointment with Dr. Garcia, and he verbalized understanding on everything. Patient IV removed and covered with a C/D/I dressing. Patient called and he was assisted gathering his belongings. Patient awaiting so that he may discharge home. Will continue to monitor. Addendum: 06/12/20 at 0817 by Kate Gomez RN Patient wheeled to 's car at 0810. No issues or complaints.
--- NOTE | 2020-06-13 07:58 | Discharge Summary ---
DISCHARGE DIAGNOSES: Benign prostatic hypertrophy, prostatism, status post transurethral resection of prostate. HISTORY OF PRESENT ILLNESS AND HOSPITAL COURSE: The patient is a gentleman, who presented with severe BPH, where he is now status post TURP by Dr. Garcia without complications. He did significantly well very quickly with resolution of his hematuria within 24 to 36 hours. He was able to have his Murray discontinued. He was able to void on his own without any difficulties and without any blood clots, so he was discharged home once he was cleared by Dr. Garcia with some p.o. antibiotics and to follow up in [address] Garcia. Please see hospital chart for full details. MD LONNY Adams/ELENA /[id number]
--- OUTSIDE RECORDS SUMMARY | 2020-06-25 11:44 | XMS REPORT | Continuity of Care Document ---
Author Author [facility] t Organization [facility] Address [address] [place] [address] Phone Unavailable Care Team Providers Care Supervisor Plate Pasting Name Role Phone MD VEGA CALZADA MD PCP Payers Payer Name Policy Type Policy Number Effective Date Expiration Date [facility] [id number] 2015 00:00:00 [facility] Cdc Review [id number] [facility] Problems Condition Name Condition Details Condition Category Status Onset Date Resolution Date Last Treatment Date Treating Clinician Comments Source Problem Condition Active [facility] Allergies, Adverse Reactions, Alerts Allergy Name Allergy Type Status Severity Reaction(s) Onset Date Inacti ve Date Treating Clinician Comments Source Promethazine Allergy to substance Active Moderate 2019-04-24 00:00 :00 [facility] Social History Social Habit Start Date Stop Date Quantity Comments Source Sex Assigned At 1965 00:00:00 1965 00:00:00 Male [facility] Medications Ordered Medication Name Filled Medication Name Start Date Stop Da te Current Medication? Ordering Clinician Indication Dosage Frequency Signature (SIG) Comments Components Source Amlodipine Besylate Amlodipine Besylate Yes 5 Daily [facility] Ezetimibe (Zetia) 10 Mg TABLET Ezetimibe (Zetia) 10 Mg TABLET Yes 10 Daily [facility] Finasteride Finasteride Yes 5 Daily [facility] Losartan/Hydrochlorothiazide (Losartan-Hctz 100-25 Mg Tab) 1 Each TABLET Losartan/Hydrochlorothiazide (Losartan-Hctz 100-25 Mg Tab) 1 Each TABLET Yes 1 Daily [facility] Tamsulosin Hcl (Flomax*) 0.4 Mg CAP Tamsulosin Hcl (Flomax*) 0.4 Mg C AP Yes .4 Twice A Day [facility] Ciprofloxacin Hcl (Cipro) 500 Mg TABLET Ciprofloxacin Hcl (C ipro) 500 Mg TABLET 2020-06-04 00:00:00 No 500 Every 12 Hours [facility] Cephalexin Monohydrate (Keflex) 500 Mg CAPSULE Cephale marcy Monohydrate (Keflex) 500 Mg CAPSULE 2019-10-21 00:00:00 No 500 Three Garrett es A Day [facility] Docusate Calcium (Surfak) 240 Mg CAPSULE Docusate Calc ium (Surfak) 240 Mg CAPSULE 2019-10-21 00:00:00 No 240 Twice A Day [facility] Hydrocodone Bit/Acetaminophen ([place] 7.5-325 Tablet) 1 Each TABLET Hydrocodone Bit/Acetaminophen ([place] 7.5-325 Tablet) 1 Each TABLET 2019-09-27 6 00:00:00 No 1 Every 4 Hours as needed for Mild Pain (1 -3) Or Fever>100.8 [facility] Kenalog Ointment Kenalog Ointment 2019-10-21 00:00:00 No 1 Three Times A Day [facility] Vital Signs Vital Name Observation Time Observation Value Comments Source Body Temperature 2020-06-12 04:00:00 98.0 [degF] [facility] BMI (Body Mass Index) 2020-06-12 00:29:00 26.5 kg/m2 [facility] Weight 2020-06-09 17:52:00 164 [lb_av] [facility] Procedures Procedure Date / Time Performed Performing Clinician [place]ene e PRP I/ALIYAH INIT REDUC >5 YR 2019-10-31 00:00:00 [facility] Plan of Care Planned Activity Planned Date Details Comments Source Instructions Benign Prostatic Hypertrophy (BPH) [facility] Encounters Start Date/Time End Date/Time Encounter Type Admission Type [facility] Facility Care Department Encounter ID Source 2020-06-09 11:04:00 2020-06-12 08:10:00 Discharged Inpatient [facility] [id number] [facility]-10[facility] 05:25:00 2019-10-31 05:25:00 [facility] [id number] [facility]. [facility] 2019-05-14 11:25:00 2019-05-15 15:18:00 Discharged Inpatient (obs) [facility] [id number] [facility]. [facility] 2019-05-05 05:49:00 2019-05-05 05:49:[address] [facility] [address] [facility] [id number] [facility]. [facility] Results Test Description Test Time Test Comments Results Result Comments Source Blood leukocytes automated count (number/volume) 2020-06-12 05:12:00 Test Item White Blood Count (test code = 6690-2) 7.06 4.8-10.8 [facility] erythrocytes automated count (number/volume)2020-06-12 05:12:00* Test Item Value Reference Range Interpretation Comments Red Blood Count (test code = 789-8) 4.43 4.3-5.7 [facility] hemoglobin measurement (moles/volume)2020-06-12 05:12:00* Test Item Value Reference Range Interpretation Comments Hemoglobin (test code = 78554-5) 14.1 14.0-18.0 [facility]villeAutomated blood hematocrit (volume fraction)2020-06-12 05:12:00* Test Item Value Reference Range Interpretation Comments Hematocrit (test code = 4544-3) 41.4 38.2-49.6 [facility]villeAutomated erythrocyte mean corpuscular [id number] 05:12:00* Test Item Value Reference Range Interpretation Comments Mean Corpuscular Volume (test code = 787-2) 93.5 81-99 [facility]villeAutomated erythrocyte mean corpuscular hemoglobin (mass per erythrocyte)2020-06-12 05:12:00* Test Item Value Reference Range Interpretation Comments Mean Corpuscular Hemoglobin (test code = 785-6) 31.8 28-32 [facility]villeAutomated erythrocyte mean corpuscular hemoglobin concentration measurement (mass/volume)2020-06-12 05:12:00* Test Item Value Reference Range Interpretation Comments Mean Corpuscular Hemoglobin Concent (test code = 786-4) 34.1 31-35 [facility] BrownsvilleRDW DlkPj-Jhe1416-45-18 05:12:00* Test Item Value Reference Range Interpretation Comments Red Cell Distribution Width (test code = 64624-3) 13.1 11.7 -14.4 [facility]villeAutomated blood platelet count (count/volume)2020-06-12 05:12:00* Test Item Value Reference Range Interpretation Comments Platelet Count (test code = 777-3) 180 140-360 [facility]villeAutour community hospitaled blood segmented neutrophil count as percentage of total gsbkzzkyho8773-76-97 05:12:00* Test Item Value Reference Range Interpretation Comments Neutrophils (%) (Auto) (test code = 61628-4) 61.1 38.7-80.0 [facility]villeAutomated blood lymphocyte count as percentage ot total ypezijzjsd4609-90-90 05:12:00* Test Item Value Reference Range Interpretation Comments Lymphocytes (%) (Auto) (test code = 736-9) 26.1 18.0-39.1 [facility]villeAutomated blood monocyte count as percentage of total chrzxvivtv2162-46-58 05:12:00* Test Item Value Reference Range Interpretation Comments Monocytes (%) (Auto) (test code = 5905-5) 8.6 4.4-11.3 [facility]villeAutomated blood eosinophil count as percentage of total ljugddvaad9040-55-96 05:12:00* Test Item Value Reference Range Interpretation Comments Eosinophils (%) (Auto) (test code = 713-8) 2.8 0.0-6.0 [facility]villeAutomated blood basophil count as percentage of total fhufurdsry5157-39-91 05:12:00* Test Item Value Reference Range Interpretation Comments Basophils (%) (Auto) (test code = 706-2) 0.7 0.0-1.0 [facility]villeFluoroscopic procedure less than one hour moxikrsu6397-80-11 05:12:00* Test Item Value Reference Range Interpretation Comments IM GRANULOCYTES % (test code = IM GRANULOCYTES %) 0.7 0.0- 1.0 [facility]villeAutomated blood neutrophil count 2020-06-12 05:12:00* Test Item Value Reference Range Interpretation Comments Neutrophils # (Auto) (test code = 751-8) 4.3 2.1-6.9 [facility]villeBlood lymphocytes count (number/volume) 2020-06-12 05:12:00* Test Item Value Reference Range Interpretation Comments Lymphocytes # (Auto) (test code = 01570-9) 1.8 1.0-3.2 [facility]villeBlood monocytes automated count (number/volume)2020-06-12 05:12:00* Test Item Value Reference Range Interpretation Comments Monocytes # (Auto) (test code = 742-7) 0.6 0.2-0.8 [facility]villeAutomated blood eosinophil count 2020-06-12 05:12:00* Test Item Value Reference Range Interpretation Comments Eosinophils # (Auto) (test code = 711-2) 0.2 0.0-0.4 [facility]villeAutomated blood basophil count (count/volume)2020-06-12 05:12:00* Test Item Value Reference Range Interpretation Comments Basophils # (Auto) (test code = 704-7) 0.1 0.0-0.1 [facility]villeFluoroscopic procedure less than one hour ekmijytj0952-23-74 05:12:00* Test Item Value Reference Range Interpretation Comments Absolute Immature Granulocyte (auto ([place] t code = Absolute Immature Granulocyte (auto) 0.05 0-0.1 [facility] Hospitalerum or plasma sodium measurement (moles/volume)2020-06-12 05:12:00* Test Item Value Reference Range Interpretation Comments Sodium Level (test code = 2951-2) 140 136-145 [facility] Hospitalerum or plasma potassium measurement (moles/volume)2020-06-12 05:12:00* Test Item Value Reference Range Interpretation Comments Potassium Level (test code = 2823-3) 3.9 3.5-5.1 [facility] Hospitalerum or plasma chloride measurement (moles/volume)2020-06-12 05:12:00* Test Item Value Reference Range Interpretation Comments Chloride Level (test code = 2075-0) 107 98-107 [facility] Hospitalerum or plasma carbon dioxide, total measurement (moles/volume)2020-06-12 05:12:00* Test Item Value Reference Range Interpretation Comments Carbon Dioxide Level (test code = 2028-9) 24 22-29 [facility] Hospitalerum or plasma anion xry7115-84-00 05:12:00* Test Item Value Reference Range Interpretation Comments Anion Gap (test code = 04310-8) 12.9 8-16 [facility] Hospitalerum or plasma urea nitrogen measurement (mass/volume)2020-06-12 05:12:00* Test Item Value Reference Range Interpretation Comments Blood Urea Nitrogen (test code = 3094-0) 13 7-26 [facility] Hospitalerum or plasma creatinine measurement (mass/volume)2020-06-12 05:12:00* Test Item Value Reference Range Interpretation Comments Creatinine (test code = 2160-0) 0.90 0.72-1.25 [facility] Hospitalerum or plasma urea nitrogen/creatinine mass zlnqr6707-51-30 05:12:00* Test Item Value Reference Range Interpretation Comments BUN/Creatinine Ratio (test code = 3097-3) 14 6-25 [facility]villeEstimated glomerular filtration rate (GFR) vmdudxyrdrxng4973-67-43 05:12:00* Test Item Value Reference Range Interpretation Comments Estimat Glomerular Filtration Rate (test code = 398566634) > 60 >60 Ranges were taken from the National Kidney Disease Education Program and the [facility] Kid[facility] literature.Reference ranges:60 or greater: Sepbxf82-01 ( for 3 consecutive months): Chronic kidney disease 15 or less: Kidney failureValley Baptist Medical Center – BrownsvilleGlucose ehvzxbwjfak4756-54-32 05:12:00* Test Item Value Reference Range Interpretation Comments Glucose Level (test code = HOR2943) 109 74-118 [facility] Hospitalerum or plasma calcium measurement (mass/volume)2020-06-12 05:12:00* Test Item Value Reference Range Interpretation Comments Calcium Level (test code = 33960-4) 9.1 8.4-10.2 [facility] BrownsvilleCapillary blood glucose measurement by glucometer (mass/volume)2020-06-11 19:26:00* Test Item Value Reference Range Interpretation Comments Bedside Glucose (test code = 90868-7) 120 70-120 Meter ID: [id number]. Luke[facility] Health [facility] Hospitalerum or plasma magnesium measurement (mass/volume)2020-06-11 04:40:00* Test Item Value Reference Range Interpretation Comments Magnesium Level (test code = 35657-6) 1.9 1.3-2.1 [facility] Hospitalerum or plasma total bilirubin measurement (mass/volume)2020-06-11 04:40:00* Test Item Value Reference Range Interpretation Comments Total Bilirubin (test code = 1975-2) 0.3 0.2-1.2 [facility]villeFluoroscopic procedure less than one hour spzubgkk3144-81-75 04:40:00* Test Item Value Reference Range Interpretation Comments Aspartate Amino Transf (AST/SGOT) (test code = Aspartate Amino Transf (AST/SGOT)) 16 5-34 [facility] Hospitalerum or plasma alanine aminotransferase measurement (enzymatic activity/volume)2020-06-11 04:40:00* Test Item Value Reference Range Interpretation Comments Alanine Aminotransferase (ALT/SGPT) (test code = 1742-6) 25 0-55 [facility] Hospitalerum or plasma protein measurement (mass/volume)2020-06-11 04:40:00* Test Item Value Reference Range Interpretation Comments Total Protein (test code = 2885-2) 6.2 6.5-8.1 [facility] Hospitalerum or plasma albumin measurement (mass/volume)2020-06-11 04:40:00* Test Item Value Reference Range Interpretation Comments Albumin (test code = 1751-7) 3.2 3.5-5.0 [facility]villePlasma globulin measurement (mass/volume) 2020-06-11 04:40:00* Test Item Value Reference Range Interpretation Comments Globulin (test code = 16645-9) 3.0 2.3-3.5 [facility] Hospitalerum or plasma albumin/globulin mass rhlvi9868-13-76 04:40:00* Test Item Value Reference Range Interpretation Comments Albumin/Globulin Ratio (test code = 1759-0) 1.1 0.8-2.0 [facility] Hospitalerum or plasma alkaline phosphatase measurement (enzymatic activity/volume)2020-06-11 04:40:00* Test Item Value Reference Range Interpretation Comments Alkaline Phosphatase (test code = 6768-6) 54 40-150 [facility] BrownsvilleFluoroscopic procedure less than one hour xbqmmrky3028-77-67 16:52:00* Test Item Value Reference Range Interpretation Comments Coronavirus (PCR) (test code = Coronavirus (PCR)) NOT DETECTED NOTD ETECTED FastCAP Aptima SARS-CoV-2 assay is a nucleic amplification test intended for the qualitative detection of RNA from SARS-CoV-2 from nasopharyngeal (PROFESSOR OF HISTORY) specimens . It is used under Emergency Use Authorization (EUA) by FDA.A positive result is indicative of the presence of SARS-CoV-2 RNA. Clinical correlation with patient history and other diagnostic information is necessary to determine patient infe ction status.A negative (Not Detected) result does not preclude SARS-CoV-2 infec tion. Clinical Correlation with patient history and other diagnostic information should be used in patient management decisions.Invalid: Unable to generate a va lid result on this specimen. Please submit a new specimen for reprat testing oc clinically indicated.Tesing performed by:[facility] [id number] [place] [address] [id number], Miguel Stallings MD, PhD [facility] Hospitalodium Uuqvj7680-20-66 05:40:00* Test Item Value Reference Range Interpretation Comments Sodium Level (test code = 2951-2) 138 136-145 [facility]villePotassium Bsovx4915-67-76 05:40:00* Test Item Value Reference Range Interpretation Comments Potassium Level (test code = 2823-3) 3.6 3.5-5.1 [facility]villeChloride Oeuvd3843-47-47 05:40:00* Test Item Value Reference Range Interpretation Comments Chloride Level (test code = 2075-0) 98 98-107 [facility] BrownsvilleCarbon Dioxide Fkipu0561-72-03 05:40:00* Test Item Value Reference Range Interpretation Comments Carbon Dioxide Level (test code = 2028-9) 26 22-29 [facility] BrownsvilleAnion Dyi8541-84-99 05:40:00* Test Item Value Reference Range Interpretation Comments Anion Gap (test code = 80952-8) 17.6 8-16 H [facility]villeBlood Urea Xmuyumxx7884-89-79 05:40:00* Test Item Value Reference Range Interpretation Comments Blood Urea Nitrogen (test code = 3094-0) 14 7-26 [facility]villeCreatinine2019-06-20 05:40:00* Test Item Value Reference Range Interpretation Comments Creatinine (test code = 2160-0) 1.35 0.72-1.25 H [facility]villeBUN/Creatinine Hpxme0232-41-91 05:40:00* Test Item Value Reference Range Interpretation Comments BUN/Creatinine Ratio (test code = 3097-3) 10 6-25 [facility] BrownsvilleEstimat Glomerular Filtration Rate 2019-05-15 05:40:00* Test Item Value Reference Range Interpretation Comments Estimat Glomerular Filtration Rate (test code = 156744155) 55 >60 L Ranges were taken from the National Kidney Disease Education Program and the [facility] Kid[facility] Foundation literature.Reference ranges:60 or greater: Uhryxn65-19 ( for 3 consecutive months): Chronic kidney disease 15 or less: Kidney failureValley Baptist Medical Center – BrownsvilleGlucose Nihxv9942-37-63 05:40:00* Test Item Value Reference Range Interpretation Comments Glucose Level (test code = FWA2670) 114 74-118 [facility]villeCalcium Opcvz9547-27-32 05:40:00* Test Item Value Reference Range Interpretation Comments Calcium Level (test code = 28168-8) 9.3 8.4-10.2 [facility]villeWhite Blood Usatx7402-05-47 05:39:00* Test Item Value Reference Range Interpretation Comments White Blood Count (test code = 6690-2) 9.89 4.8-10.8 [facility]villeRed Blood Gsucq3697-73-58 05:39:00* Test Item Value Reference Range Interpretation Comments Red Blood Count (test code = 789-8) 4.31 4.3-5.7 [facility]villeHemoglobin2019-06-20 05:39:00* Test Item Value Reference Range Interpretation Comments Hemoglobin (test code = 01694-7) 13.0 14.0-18.0 L [facility]villeHematocrit2019-06-20 05:39:00* Test Item Value Reference Range Interpretation Comments Hematocrit (test code = 4544-3) 36.8 38.2-49.6 L [facility] BrownsvilleMean Corpuscular Mymozw7330-51-56 05:39:00* Test Item Value Reference Range Interpretation Comments Mean Corpuscular Volume (test code = 787-2) 85.4 81-99 [facility] BrownsvilleMean Corpuscular Wywcaputrm7914-04-55 05:39:00* Test Item Value Reference Range Interpretation Comments Mean Corpuscular Hemoglobin (test code = 785-6) 30.2 28-32 [facility] BrownsvilleMean Corpuscular Hemoglobin Concent 2019-05-15 05:39:00* Test Item Value Reference Range Interpretation Comments Mean Corpuscular Hemoglobin Concent (test code = 786-4) 35.3 31-35 H [facility] BrownsvilleRed Cell Distribution Uaylv4608-96-01 05:39:00* Test Item Value Reference Range Interpretation Comments Red Cell Distribution Width (test code = 06782-3) 13.4 11.7 -14.4 [facility] BrownsvillePlatelet Sbmar0547-63-06 05:39:00* Test Item Value Reference Range Interpretation Comments Platelet Count (test code = 777-3) 234 140-360 [facility]villeNeutrophils (%) (Auto)2019-05-15 05:39:00 * Test Item Value Reference Range Interpretation Comments Neutrophils (%) (Auto) (test code = 30289-0) 82.1 38.7-80.0 H [facility]villeLymphocytes (%) (Auto)2019-05-15 05:39:00 * Test Item Value Reference Range Interpretation Comments Lymphocytes (%) (Auto) (test code = 736-9) 12.3 18.0-39.1 L [facility]villeMonocytes (%) (Auto)2019-05-15 05:39:00* Test Item Value Reference Range Interpretation Comments Monocytes (%) (Auto) (test code = 5905-5) 5.1 4.4-11.3 [facility]villeEosinophils (%) (Auto)2019-05-15 05:39:00 * Test Item Value Reference Range Interpretation Comments Eosinophils (%) (Auto) (test code = 713-8) 0.0 0.0-6.0 [facility]villeBasophils (%) (Auto)2019-05-15 05:39:00* Test Item Value Reference Range Interpretation Comments Basophils (%) (Auto) (test code = 706-2) 0.1 0.0-1.0 [facility] BrownsvilleIM GRANULOCYTES %2019-05-15 05:39:00* Test Item Value Reference Range Interpretation Comments IM GRANULOCYTES % (test code = IM GRANULOCYTES %) 0.4 0.0- 1.0 [facility]villeNeutrophils # (Auto)2019-05-15 05:39:00* Test Item Value Reference Range Interpretation Comments Neutrophils # (Auto) (test code = 751-8) 8.1 2.1-6.9 H [facility]villeLymphocytes # (Auto)2019-05-15 05:39:00* Test Item Value Reference Range Interpretation Comments Lymphocytes # (Auto) (test code = 08194-0) 1.2 1.0-3.2 [facility]villeMonocytes # (Auto)2019-05-15 05:39:00* Test Item Value Reference Range Interpretation Comments Monocytes # (Auto) (test code = 742-7) 0.5 0.2-0.8 [facility]villeEosinophils # (Auto)2019-05-15 05:39:00* Test Item Value Reference Range Interpretation Comments Eosinophils # (Auto) (test code = 711-2) 0.0 0.0-0.4 [facility]villeBasophils # (Auto)2019-05-15 05:39:00* Test Item Value Reference Range Interpretation Comments Basophils # (Auto) (test code = 704-7) 0.0 0.0-0.1 [facility] BrownsvilleAbsolute Immature Granulocyte (auto 2019-05-15 05:39:00* Test Item Value Reference Range Interpretation Comments Absolute Immature Granulocyte (auto ([place] t code = Absolute Immature Granulocyte (auto) 0.04 0-0.1 [facility] BrownsvilleBedside Zsdodqp2428-74-90 11:39:00* Test Item Value Reference Range Interpretation Comments Bedside Glucose (test code = 39668-5) 101 70-120 Meter ID: [id number] [facility] Medical Center – [facility]ville
--- NOTE | 2020-06-28 05:31 | Operative Report ---
DATE OF PROCEDURE: 06/09/2020 SURGEON: Thierry Garcia MD PREOPERATIVE DIAGNOSES: 1. Obstructive benign prostatic hyperplasia. 2. Incomplete bladder emptying. POSTOPERATIVE DIAGNOSES: 1. Obstructive benign prostatic hyperplasia. 2. Incomplete bladder emptying. OPERATIONS PERFORMED: 1. Cystourethroscopy with bilateral ureteral catheterization and retrograde ureteropyelography (separate procedure performed for the incomplete bladder emptying). 2. Interpretation of retrograde ureteropyelography. 3. Supervision of fluoroscopy, no radiologist present. 4. Cystourethroscopy with transurethral resection of the prostate utilizing the plasma button electrode (separate procedure performed for the diagnosis of the obstructive benign prostatic hyperplasia). ANESTHESIA: General. COMPLICATIONS: None. CLINICAL SUMMARY: Adan Cagle is a 54-year-old man with obstructive BPH. He has been on medication. He has elected to proceed with surgery as planned. He is aware of the risks of bleeding, infection, injury to adjacent structures, need for additional procedures and elected to proceed. PROCEDURE IN DETAIL: Informed consent was verified. Adan Cagle was properly identified, taken to the operating room, placed on the cystoscopy table in supine position. Anesthesia was uneventfully begun. The patient was then carefully and gently repositioned in the dorsal lithotomy position with all pressure points well padded. His genitalia were prepared and draped in usual sterile fashion. The cystoscope sheath with the visual obturator in place was atraumatically inserted. The patient's urethra was guided unremarkable. Distal urethra through normal sphincteric region through the prostate bed, which was significant for bilobar prostatic hypertrophy with kissing lateral lobes and severe visual obstruction. We entered the patient's bladder. Panendoscopy revealed trabeculations, but no tumors no stones, and no diverticula. Normally positioned and configured ureteral orifices were identified. An 8-Ivorian catheter was used to cannulate each ureter and retrograde ureteropyelograms were performed. Interpretation of retrograde ureteropyelography contrast was instilled in retrograde fashion bilaterally. There were no tumors, no stones, and no diverticula. Unobstructed drainage was observed bilaterally fluoroscopically. The cystoscope was withdrawn. The resectoscope was atraumatically placed. Plasma button electrode was then utilized to vaporize the prostate from the bladder neck tube, but never passed the verumontanum and down the surgical capsule. Pinpoint electrocautery was utilized to achieve hemostasis. The resectoscope was withdrawn. Murray catheter was placed. It was irrigated to and fro to ensure it worked properly. It was placed in continuous irrigation with clear efflux. Belladonna and Opium suppositories were placed revealing a large smooth prostate without any nodules. The patient was then uneventfully reversed from anesthesia and taken to recovery room in stable condition. There were no complications to the procedure. He tolerated the procedure well. Plans will be to proceed with routine postoperative care and ongoing urological followup. Thierry Garcia MD [place]/MODL /[id number] cc: Daryn Murillo MD
== END 2020-06-12 08:10 | disposition home or self-care (01) | DRG 713 ==
LOC: OR 06:28 → PACU V 11:04 → MED/SURG 15:13
PROVIDERS: ADMIT Internal Medicine; ATTEND Internal Medicine
PROC: BT141ZZ Fluoroscopy of Kidneys, Ureters and Bladder using Low Osmolar Contrast (ICD-10-PCS; 2020-06-09)
PROC: 0T788ZZ Dilation of Bilateral Ureters, Via Natural or Artificial Opening Endoscopic (ICD-10-PCS; principal; 2020-06-09 08:30)
PROC: 0VB08ZZ Excision of Prostate, Via Natural or Artificial Opening Endoscopic (ICD-10-PCS; 2020-06-09 08:30)
DX: N40.1 Benign prostatic hyperplasia with lower urinary tract symptoms (principal); N39.0 Urinary tract infection, site not specified; N13.8 Other obstructive and reflux uropathy; E78.5 Hyperlipidemia, unspecified; Z11.59 Encounter for screening for other viral diseases; R33.8 Other retention of urine; E11.65 Type 2 diabetes mellitus with hyperglycemia; E29.1 Testicular hypofunction
CPT/HCPCS: 36415; 74420; 80048; 80053; 82948; 83735; 85025; 93005; C1758; J0696; J1100; J1580; J2001; J2405; J3010; J7030; U0002